=== PATIENT | male | born 1990 | race Caucasian/White ===

== ENCOUNTER → 2017-02-09 | Outpatient (REF) | payer SELFPAY ==
[2017-02-09 11:06] LABS: % NORMAL FORMS < 4 % (>=4); IMMOTILITY 82 %; NON PROGRESSIVE MOTILITY (c) 14 %; PROGRESSIVE MOTILITY (a) 4 % (>=32); SPERM# 37.1 M/Ejac (33-46); TOTAL MOTILITY 18 % (>=40)
[2017-02-09 11:07] LABS: TOTAL FUNCTIONAL 0 M/Ejac.; TOTAL PROGRESSIVE SPERM 1.6 M/Ejac.
== END ==
LOC: M LAB REF 10:19
PROVIDERS: ATTEND Obstetrics & Gynecology
DX: Z00.00 Encounter for general adult medical examination without abnormal findings (principal)

== ENCOUNTER → 2017-05-08 | Outpatient (REF) | payer OTHER ==
[2017-05-08 13:51] LABS: PROGRESSIVE MOTILITY (a) 0 % (>=32)
[2017-05-08 13:52] LABS: % NORMAL FORMS < 4 % (>=4); IMMOTILITY 94 %; NON PROGRESSIVE MOTILITY (c) 6 %; SPERM# 11.6 M/Ejac (33-46); TOTAL FUNCTIONAL 0 M/Ejac.; TOTAL MOTILITY 6 % (>=40); TOTAL PROGRESSIVE SPERM 0 M/Ejac.
== END ==
LOC: M LAB REF 13:11
PROVIDERS: ATTEND Obstetrics & Gynecology
DX: N46.9 Male infertility, unspecified (principal)

== ENCOUNTER 2017-10-30 18:25 | Emergency (ER) | payer OTHER ==
[~2017-10-30] VITALS: Ht 177.8 cm; Wt 59.1 kg
[2017-10-30] MEDS ORDERED: MULT1CHW39 PO (18:45)
[2017-10-30] MEDS ORDERED: IBUP200C10 PO (18:45)
[2017-10-30] MEDS ORDERED: NORCO, ANEXSIA 5/325MG TABLET (HYDROcodone/ACETAMINOPHEN) PO ONE (19:15)
--- NOTE | 2017-10-30 19:56 | REP ---
Right wrist four views: There is a nondisplaced fracture at the base of the ulnar styloid. There is no other fracture or dislocation. Mineralization joint spaces are normal. Signed by Dann Rabago MD 10/30/2017 07:47 P
--- NOTE | 2017-10-30 19:58 | REP ---
Right hand four views: There is a nondisplaced fracture at the base of the ulnar styloid. There is questionably a nondisplaced intra-articular fracture at the base of the radial styloid. This should be correlated with clinical point tenderness. No other fractures are identified. No dislocation. Mineralization joint spaces are normal. Signed by Dann Rabago MD 10/30/2017 07:49 P
[2017-10-30] MEDS ORDERED: PERC5TAB12 PO (20:23)
[2017-10-30] MEDS ORDERED: NORCO 5/325MG TABLET (BULK FOR ED) PO ONE (20:30)
[2017-10-30 20:37] VITALS: BP 121/68
== END 2017-10-30 20:39 | disposition home or self-care (01) ==
LOC: M ED 18:25
DX: S52.614A Nondisplaced fracture of right ulna styloid process, initial encounter for closed fracture (principal); W55.29XA Other contact with cow, initial encounter; Y92.9 Unspecified place or not applicable; Y93.9 Activity, unspecified; Y99.0 Civilian activity done for income or pay; F17.200 Nicotine dependence, unspecified, uncomplicated; Z79.899 Other long term (current) drug therapy

== ENCOUNTER 2017-12-24 09:19 | Emergency (ER) | payer SELFPAY, OTHER ==
[2017-12-24 10:59] LABS: INFLUENZA A AMPLIFICATION NEGATIVE (NEGATIVE); INFLUENZA B AMPLIFICATION NEGATIVE (NEGATIVE)
== END 2017-12-24 11:34 | disposition home or self-care (01) ==
LOC: M ED 09:19
DX: J06.9 Acute upper respiratory infection, unspecified (principal); J45.909 Unspecified asthma, uncomplicated
CPT/HCPCS: 87502

== ENCOUNTER 2018-02-25 19:45 | Emergency (ER) | payer MEDICAID, SELFPAY, OTHER ==
[2018-02-25 23:21] LABS: KETONE, URINE AUTO RFX 1+ mg/dL (NEGATIVE); LEUKOCYTE ESTERASE UR AUTO RFX NEGATIVE (NEGATIVE); MUCUS, URINE RFX SMALL (NEGATIVE); NITRITE, URINE AUTO RFX NEGATIVE (NEGATIVE); RBC, URINE AUTO RFX 2 /HPF (0-3); SPECIFIC GRAVITY UR AUTO RFX 1.024 (1.002-1.035); SQUAM EPITHELIAL CELL UR AURFX 0 /HPF (0-6); WBC, URINE AUTO RFX 5 /HPF (0-3)
[2018-02-26 00:46] LABS: CHLAMYDIA DNA AMPLIFICATION POSITIVE (NEGATIVE); GC DNA AMPLIFICATION NEGATIVE (NEGATIVE)
== END 2018-02-26 00:06 | disposition home or self-care (01) ==
LOC: M ED 02-26 00:06
DX: N45.1 Epididymitis (principal); N39.0 Urinary tract infection, site not specified; Z87.442 Personal history of urinary calculi; F17.290 Nicotine dependence, other tobacco product, uncomplicated
CPT/HCPCS: 76870

== ENCOUNTER 2018-03-01 11:11 | Emergency (ER) | payer MEDICAID, SELFPAY ==
[2018-03-01] MEDS: cefTRIAXone SOD 250 MG VIAL (J0696) IM ×2 (12:05)
[2018-03-01 13:12] LABS: HEPATITIS B SURFACE ANTIBODY POSITIVE (POSITIVE)
[2018-03-01 13:22] LABS: HEPATITIS B SURFACE ANTIGEN NEGATIVE (NEGATIVE)
[2018-03-01 13:50] LABS: HEPATITIS C VIRUS ABY INDEX < 0.0 INDEX (<0.8)
[2018-03-01 13:51] LABS: HIV 1&2 SCREEN CENTAUR NEGATIVE (NEGATIVE)
== END 2018-03-01 12:44 | disposition home or self-care (01) ==
LOC: M ED 11:11
DX: A74.9 Chlamydial infection, unspecified (principal); Z79.2 Long term (current) use of antibiotics
CPT/HCPCS: J0696

== ENCOUNTER 2019-10-09 14:34 | Emergency (ER) | payer MEDICAID, SELFPAY ==
[~2019-10-09] VITALS: Ht 177.8 cm; Wt 66.2 kg
[~2019-10-09 14:34] MED LIST: BENZ200C70 PO; CIPR-249 PO; DOXY100C37 PO; IBUP-1022 PO; IBUP200C25 PO; MULT200T7 PO; NAPR250T82 PO; PERC5TAB12 PO; VENTAER IN; VITA125C2 PO
[2019-10-09] MEDS ORDERED: ACETAMINOPHEN 325 MG TAB PO ONE (15:00)
[2019-10-09 16:12] LABS: INFLUENZA A AMPLIFICATION NEGATIVE (NEGATIVE); INFLUENZA B AMPLIFICATION NEGATIVE (NEGATIVE)
[2019-10-09 16:22] VITALS: BP 124/63
[2019-10-09] MEDS ORDERED: IBUPROFEN 600 MG TAB PO ONE (16:30)
--- NOTE | 2019-10-10 07:43 | REP ---
REASON: Cough. FINDINGS: The superior mediastinal structures are midline. The cardiac silhouette is unremarkable in size, shape, and position. The diaphragmatic surfaces of the lungs are regular, and the costophrenic angles are clear. The pulmonary larson are clear. The imaged osseous structures are intact. IMPRESSION: There is no acute cardiopulmonary disease. Electronically Signed by Shashi Alba DO 10/10/2019 12:08 P
== END 2019-10-09 16:44 | disposition home or self-care (01) ==
LOC: M ED 14:34
DX: J06.9 Acute upper respiratory infection, unspecified (principal); J45.909 Unspecified asthma, uncomplicated; F17.220 Nicotine dependence, chewing tobacco, uncomplicated

== ENCOUNTER 2020-02-29 11:47 | Emergency (ER) | payer OTHER, SELFPAY ==
[~2020-02-29] VITALS: Ht 177.8 cm; Wt 69.8 kg
[2020-02-29] MEDS ORDERED: MULTCAP PO (11:54)
[2020-02-29] MEDS ORDERED: IBUP-1114 PO (11:54)
[2020-02-29 12:33] LABS: BASO # 0.1 10^3/uL (0.0-0.2); BASO % 0.8 % (0.0-1.0); EOS # 0.6 10^3/uL (0.0-0.5); EOS % 4.8 % (0.0-3.0); HEMATOCRIT 45.8 % (42.0-52.0); HEMOGLOBIN 15.6 g/dl (13.5-17.5); LYMPH # 1.8 10^3/uL (1.5-5.0); LYMPH % 14.9 % (24.0-44.0); MEAN CORPUSCULAR HEMOGLOBIN 30.6 pg (27.0-33.0); MEAN CORPUSCULAR HGB CONC 34.1 g/dl (32.0-36.5); MONO # 0.7 10^3/uL (0.0-0.8); MONO % 6.2 % (0.0-5.0); NEUTROPHILS # 8.6 10^3/uL (1.5-8.5); PLATELET COUNT, AUTOMATED 246 10^3/uL (150-450); RED BLOOD COUNT 5.09 10^6/uL (4.30-6.10); WHITE BLOOD COUNT 11.8 10^3/uL (4.0-10.0)
[2020-02-29] MEDS ORDERED: ISOVUE-370 76% 100ML VIAL As Ordered ONE (12:39)
[2020-02-29 13:11] LABS: FREE T4 1.05 NG/DL (0.76-1.46); THYROID STIMULATING HORMONE 1.25 uIU/ML (0.358-3.740)
[2020-02-29] MEDS ORDERED: MEDR4PAK PO (13:34)
[2020-02-29 13:41] VITALS: BP 114/58
--- NOTE | 2020-02-29 14:10 | REP ---
REASON FOR EXAM: Right-sided pain. No palpable abnormality whatsoever. CONTRAST: 100 mL Isovue 370. THE SUPRAHYOID NECK: The parapharyngeal, retropharyngeal, pharyngeal mucosal, carotid, musical string maker, and parotid spaces are within normal limits. The prevertebral and paraspinal components of the perivertebral space are within normal limits. Nonenlarged anterior cervical lymph nodes are seen in the anterior chain bilaterally. They have a symmetric appearance and do not abnormally enhance. THE INFRAHYOID NECK: The aforementioned neck spaces along with the posterior cervical space are within normal limits. Bone window technique throughout the examination shows no abnormality. The imaged portions of the paranasal sinuses and mastoid air cells show them to be clear. IMPRESSION: CT findings, as described above, are within normal limits, however, since the patient is experiencing focal pain, consider followup with gadolinium enhanced soft tissue neck MRI if clinically relevant. Electronically Signed by Shashi Alba DO 02/29/2020 02:16 P
--- NOTE | 2020-03-02 06:38 | ED PDOC ---
Post-Departure Follow-Up dr abdi faxed formal report of ct neck w contrast for Sekou Dukes MD Mar 02, 2020 06:38
== END 2020-02-29 13:43 | disposition home or self-care (01) ==
LOC: M ED 11:47
DX: M54.12 Radiculopathy, cervical region (principal); R59.0 Localized enlarged lymph nodes; R13.10 Dysphagia, unspecified; J45.909 Unspecified asthma, uncomplicated
CPT/HCPCS: 36415; 70491; 80047; 84439; 84443; 85025; 99284; Q9967

== ENCOUNTER 2021-11-15 13:13 | Emergency (ER) | payer OTHER, SELFPAY ==
[~2021-11-15] VITALS: Ht 177.8 cm; Wt 63.6 kg
[~2021-11-15 13:13] MED LIST changes: +DOXY-443 PO; -DOXY100C37 PO; +IBUP-1114 PO; +MEDR4PAK PO; +MULTCAP PO
--- NOTE | 2021-11-15 13:48 | REP ---
INDICATION: ? FB COMPARISON: None. TECHNIQUE: AP, lateral, bilateral oblique views right hand. FINDINGS: There is no evidence for acute fracture or dislocation. Two small 2.1 x 1.5 mm foreign body densities are identified in the soft tissues adjacent to the 1st metacarpal bone and correlation is recommended. IMPRESSION: Two small foreign bodies identified in the soft tissues adjacent to the 1st metacarpal. <Electronically signed by Bunny Wells > 11/15/21 [id number]
[2021-11-15] MEDS ORDERED: BOOSTRIX/ADACEL VACCINE (DIPHTH/PERTUSS/ACELL/TETANUS) 0.5ML SYR IM ONE (16:40)
[2021-11-15] MEDS ORDERED: KETOROLAC TROMETHAMINE 10 MG TAB PO ONE (16:40)
[2021-11-15] MEDS ORDERED: LIDOCAINE 1% SDV 5ML VIAL DILUENT ONE (16:55)
[2021-11-15] MEDS ORDERED: cefTRIAXone SOD 2 GM VIAL (J0696 PER 250MG) IM ONE (16:55)
[2021-11-15] MEDS ORDERED: IBUP80TA PO (17:06)
[2021-11-15] MEDS ORDERED: AUGM875T28 PO (17:06)
[2021-11-15 17:37] VITALS: BP 125/68
== END 2021-11-15 17:36 | disposition home or self-care (01) ==
LOC: M ED 13:13
DX: S61.441A Puncture wound with foreign body of right hand, initial encounter (principal); W22.8XXA Striking against or struck by other objects, initial encounter; Y92.009 Unspecified place in unspecified non-institutional (private) residence as the place of occurrence of the external cause; Y93.89 Activity, other specified; Y99.9 Unspecified external cause status; F17.220 Nicotine dependence, chewing tobacco, uncomplicated
CPT/HCPCS: 73130; 90471; 90715; 96372; 99284; J0696

== ENCOUNTER → 2025-03-19 | Outpatient (CLI) | payer OTHER ==
[~2025-03-19] MED LIST changes: +AUGM875T28 PO; +DOXY-441 PO; -DOXY-443 PO; +IBUP80TA PO; -MULT200T7 PO; +MULT200T9 PO
== END ==
LOC: M RAD 13:07
PROVIDERS: ATTEND Family Medicine Addiction Medicine
DX: M47.812 Spondylosis without myelopathy or radiculopathy, cervical region (principal); G89.29 Other chronic pain; M54.50 Low back pain, unspecified; M25.78 Osteophyte, vertebrae

== ENCOUNTER → 2025-09-21 | Outpatient (CLI) | payer OTHER ==
[~2025-09-21] MED LIST changes: +C 50TAB PO; -IBUP-1022 PO; +IBUP600T42 PO; +LORA-1041 PO; +NEXI20CA33 PO; +PRED10TA2 PO; +THERTAB52 PO
[2025-09-21 14:41] LABS: BASO # 0.1 10^3/uL (0.0-0.2); BASO % 1.0 % (0.0-1.0); EOS # 0.3 10^3/uL (0.0-0.5); EOS % 4.8 % (0.0-3.0); LYMPH # 1.6 10^3/uL (1.5-5.0); LYMPH % 23.0 % (24.0-44.0); MONO # 0.4 10^3/uL (0.0-0.8); MONO % 6.2 % (2.0-8.0); NEUTROPHILS # 4.6 10^3/uL (1.5-8.5); NEUTROPHILS % 64.9 % (36.0-66.0); PLATELET COUNT, AUTOMATED 262 10^3/uL (150-450)
[2025-09-21 15:12] LABS: FREE T4 1.25 NG/DL (0.89-1.76); VITAMIN B12 LEVEL 675 PG/ML (211-911)
[2025-09-21 15:13] LABS: ALT/SGPT 55 U/L (7.0-40); AST/SGOT 27 U/L (<34); CALCIUM LEVEL 9.9 MG/DL (8.5-10.1); CARBON DIOXIDE LEVEL 30 MMOL/L (20-31); CHLORIDE LEVEL 106 MMOL/L (98-107); CHOLESTEROL LEVEL 224 MG/DL (<200); CHOLESTEROL RISK RATIO 6.10 (<5); CREATININE FOR GFR 1.04 MG/DL (0.70-1.30); GLOMERULAR FILTRATION RATE > 90.0 (>60); LDL CHOLESTEROL 166.9 MG/DL (<100); NON-HDL-C 187.3 MG/DL; POTASSIUM SERUM 4.4 MMOL/L (3.5-5.1); SODIUM LEVEL 144 MMOL/L (136-145); TRIGLYCERIDES LEVEL 102 MG/DL (<150)
== END ==
LOC: M LAB 13:53
PROVIDERS: ATTEND Family Medicine
DX: Z00.01 Encounter for general adult medical examination with abnormal findings (principal); F43.10 Post-traumatic stress disorder, unspecified